=== PATIENT | female | born 1960 | race Asian ===

== ENCOUNTER 2018-07-26 20:13 | Emergency (ER) | payer OTHER ==
[~2018-07-26] VITALS: Ht 177.8 cm; Wt 90.7 kg
[~2018-07-26 20:13] MED LIST: UNITH DIRECT25 MCG PO
[2018-07-26 20:45] LABS: PLATELET COUNT 186 K/uL (152-353)
[2018-07-26 20:50] LABS: POTASSIUM 3.3 mmol/L (3.6-5.2)
[2018-07-26 21:35] VITALS: BP 155/79; TEMP 97.9
[2018-07-26] MEDS ORDERED: MELATONIN CR3 MG PO (23:57)
[2018-07-27] MEDS ORDERED: BIOTIN1000 MCG PO (00:11)
[2018-07-27] MEDS ORDERED: AZATHIOPRINE50 MG PO (00:13)
[2018-07-27] MEDS ORDERED: CALCIUM 600+D31 TA2 PO (00:41)
[2018-07-27] MEDS ORDERED: DOCU SOFT100 MG PO (00:46)
[2018-07-27] MEDS ORDERED: FURO40TA93 PO (00:48)
[2018-07-27] MEDS ORDERED: LOSA50TA PO (00:49)
[2018-07-27] MEDS ORDERED: MONTELUKAST SOD10 MG PO (00:51)
[2018-07-27] MEDS ORDERED: OMEPRAZOLE20 M1 PO (00:53)
[2018-07-27] MEDS ORDERED: MIRALAX3350 N1 PO (00:58)
[2018-07-27] MEDS ORDERED: SPIRIVA HANDIH18 MCG INH (01:00)
[2018-07-27] MEDS ORDERED: ZINC SULFATE50 MG PO (01:02)
[2018-07-27] MEDS ORDERED: FLUTMIS2 INH (01:04)
[2018-07-27] MEDS ORDERED: ALPR0.5T24 PO (01:07)
[2018-07-27] MEDS ORDERED: HYDROXYZINE HYD25 MG PO (01:09)
[2018-07-27] MEDS ORDERED: GABA300C2 PO (01:11)
[2018-07-27] MEDS ORDERED: [UNRECOGNIZED DRUG - OTHER] PO (01:12)
[2018-07-27] MEDS ORDERED: QUDEXY XR200 MG PO (01:14)
[2018-07-27] MEDS ORDERED: TRAVATAN Z0.004 % OTIC (01:16)
[2018-07-27] MEDS ORDERED: IPRAT INH (01:24)
[2018-07-27] MEDS ORDERED: ABACAVIR SULFAT1 TAB PO (01:25)
[2018-07-27] MEDS ORDERED: HYDROCO/APAP1 TA2 PO (01:31)
[2018-07-27] MEDS ORDERED: TEARS NATURALE OTIC ×2 (01:35→01:36)
[2018-07-27] MEDS ORDERED: ROBITUSS10 PO (01:44)
[2018-07-27] MEDS ORDERED: TYLENOL325 MG PO (01:48)
[2018-07-27] MEDS ORDERED: ONDA4TAB3 PO (01:49)
[2018-07-27] MEDS ORDERED: ACCU (01:53)
[2018-08-02] MEDS ORDERED: CLON0.5T36 PO (10:17)
[2018-08-02] MEDS ORDERED: ESCI10TA PO (10:18)
[2018-08-02] MEDS ORDERED: INSUINJ20 SC (10:19)
[2018-08-02] MEDS ORDERED: ARIPIPRAZOLE10 MG PO (10:21)
[2018-08-19] MEDS ORDERED: SPIRIVA HANDIH18 MCG INH (02:47)
[2018-08-19] MEDS ORDERED: TRAVATAN Z0.004 % OPTH (02:51)
[2018-08-19] MEDS ORDERED: FLUTMIS2 INH (02:52)
[2018-08-19] MEDS ORDERED: CLON0.5T36 PO (02:54)
== END 2018-07-26 21:35 | disposition other institution (70) ==
LOC: ED 20:13
DX: F22 Delusional disorders (principal); Z04.6 Encounter for general psychiatric examination, requested by authority
CPT/HCPCS: 36415; 80053; 85027; 93005; 99285

== ENCOUNTER 2018-08-18 21:32 | Emergency (ER) | payer OTHER ==
[~2018-08-18] VITALS: Ht 182.9 cm; Wt 93.0 kg
[~2018-08-18 21:32] MED LIST changes: +ABACAVIR SULFAT1 TAB PO; +ACCU; +ALPR0.5T24 PO; +ARIPIPRAZOLE10 MG PO; +AZATHIOPRINE50 MG PO; +BIOTIN1000 MCG PO; +CALCIUM 600+D31 TA2 PO; +CLON0.5T36 PO; +DOCU SOFT100 MG PO; +ESCI10TA PO; +FLUTMIS2 INH; +FURO40TA93 PO; +GABA300C2 PO; +HYDROCO/APAP1 TA2 PO; +HYDROXYZINE HYD25 MG PO; +INSUINJ20 SC; +IPRAT INH; +LOSA50TA PO; +MELATONIN CR3 MG PO; +MIRALAX3350 N1 PO; +MONTELUKAST SOD10 MG PO; +OMEPRAZOLE20 M1 PO; +ONDA4TAB3 PO; +QUDEXY XR200 MG PO; +ROBITUSS10 PO; +SPIRIVA HANDIH18 MCG INH; +TEARS NATURALE OTIC; +TRAVATAN Z0.004 % OTIC; +TYLENOL325 MG PO; +ZINC SULFATE50 MG PO; +[UNRECOGNIZED DRUG - OTHER] PO
[2018-08-18 21:57] LABS: PLATELET COUNT 288 K/uL (152-353)
[2018-08-18 22:05] VITALS: BP 117/79; TEMP 99.7
[2018-08-18 22:09] LABS: POTASSIUM 3.4 mmol/L (3.6-5.2)
[2018-08-19] MEDS ORDERED: SPIRIVA HANDIH18 MCG INH (02:47)
[2018-08-19] MEDS ORDERED: TRAVATAN Z0.004 % OPTH (02:51)
[2018-08-19] MEDS ORDERED: FLUTMIS2 INH (02:52)
[2018-08-19] MEDS ORDERED: CLON0.5T36 PO (02:54)
== END 2018-08-18 22:05 ==
LOC: ED 21:32
PROVIDERS: Internal Medicine
DX: F20.0 Paranoid schizophrenia (principal); Z04.6 Encounter for general psychiatric examination, requested by authority
CPT/HCPCS: 36415; 80053; 85027; 99285